=== PATIENT | male | born 1985 | race Caucasian/White ===

== ENCOUNTER 2020-03-11 14:33 | Emergency (ER) | payer BC ==
--- NOTE | 2020-03-11 21:30 | PCM.SN.2 ---
- Free Text/Narrative Note: No patient-physician encounter. Reviewed RN records. Patient changed mind and did not want to be seen in the ED.
== END 2020-03-11 15:00 | disposition left against medical advice (07) ==
LOC: MW.ED 14:33
DX: Z53.21 Procedure and treatment not carried out due to patient leaving prior to being seen by health care provider (principal)